=== PATIENT | female | born 1990 | race Caucasian/White ===

== ENCOUNTER 2019-12-16 17:17 | Inpatient (IN) | payer MEDICAID, OTHER ==
[~2019-12-16] VITALS: Ht 154.9 cm; Wt 94.3 kg
[~2019-12-16 17:17] MED LIST: PREN-385 PO
[2019-12-16 17:26] VITALS: BP 147/75
[2019-12-16] MEDS ORDERED: KETOROLAC 30 MG/ML VIAL IVP ONE (17:40)
[2019-12-16] MEDS ORDERED: NACL 0.9% 3,000 ML IV ONE (17:40)
[2019-12-16] MEDS ORDERED: PHENAZOPYRIDINE 100 MG TAB PO ONE (17:40)
--- NOTE | 2019-12-16 17:46 | NUR ---
Pt c/o lower abdomen radiating to lower back with hematuria, dysuria, urgency, frequency, hesitancy of urination x 4 days. Pt also reports fever, chills, nausea, vomiting for the past 4 days. Denies cough, diarrhea. PATIENT STATES PAIN OF 8/10 AT THIS TIME; VSS; left-sided CVAT ON PALPATION. PATIENT POSITIONED FOR COMFORT; HOB ELEVATED; BEDRAILS UP X1; BED DOWN. ER MD MADE AWARE OF PT STATUS.
--- NOTE | 2019-12-16 17:47 | NUR ---
xRAY IS AT BEDSIDE.
[2019-12-16 18:16] LABS: BASOPHILS # (AUTO) 0.1 K/uL (0.00-0.22); BASOPHILS % (AUTO) 0.5 % (0.0-2.0); EOSINOPHILS % (AUTO) 0.2 % (0.0-4.0); HEMATOCRIT 41.9 % (36-48); LYMPHOCYTES # (AUTO) 0.7 K/uL (2.5-16.5); LYMPHOCYTES % (AUTO) 5.9 % (20.5-51.1); MEAN CORPUSCULAR HEMOGLOBIN 30 pg (27-31); MEAN CORPUSCULAR HGB CONC 34 g/dL (33-37); MEAN CORPUSCULAR VOLUME 89.5 fL (80-94); MONOCYTES # (AUTO) 0.8 K/uL (0.8-1.0); MONOCYTES % (AUTO) 6.1 % (1.7-9.3); NEUTROPHILS % (AUTO) 87.3 % (42.2-75.2); PLATELET COUNT (AUTO) 181 K/uL (140-450); RED BLOOD CELL COUNT(AUTO) 4.68 MIL/uL (4.20-5.40); RED CELL DISTRIBUTION WIDTH 13.4 % (11.6-13.7); WHITE BLOOD COUNT (AUTO) 12.6 K/uL (4.8-10.8)
[2019-12-16 18:28] LABS: APPEARANCE,URINE HAZY (CLEAR); BILIRUBIN,URINE 1+ (NEGATIVE); BLOOD, URINE 3+ (NEGATIVE); COLOR,URINE YELLOW (YELLOW); LEUKOCYTE ESTERASE ,URINE 2+ (NEGATIVE); NITRITE, URINE POSITIVE (NEGATIVE); UGLUCOSE NEGATIVE (NEGATIVE)
[2019-12-16 18:31] LABS: PROTHROMBIN TIME 10.9 secs (10.8-13.4)
[2019-12-16 18:34] LABS: ALBUMIN 3.5 g/dL (3.4-5.0); ANION GAP 13.2 (8-16); CARBON DIOXIDE 29.4 mmol/L (21-32); CREATININE 1.2 mg/dL (0.6-1.3); POTASSIUM 3.6 mmol/L (3.5-5.1); TOTAL BILIRUBIN 2.3 mg/dL (0.0-1.0)
[2019-12-16] MEDS ORDERED: cefTRIAXone 1,000 MG VIAL ONE (18:43)
[2019-12-16] MEDS ORDERED: ACETAMINOPHEN EXTRA STRENGTH 500 MG TAB PO ONE (18:50)
[2019-12-16] MEDS ORDERED: hydrALAZINE 20 MG/ML VIAL IVP PRN (18:55)
--- NOTE | 2019-12-16 19:07 | NUR ---
RECEIVED REPORT FROM AM SHIFT NURSE FOR CONTINUITY OF CARE. TELE MONITOR IN PLACE. PATIENT RESTING IN BED. ALERT AND ORIENTED X4. PATIENT IV INTACT AND PATENT. BED IN LOW POSITION AND CALL LIGHT WITHIN REACH. PATIENT ON ROOM AIR, NO S/S OF DISTRESS NOTED. WILL CONTINUE TO MONITOR.
--- NOTE | 2019-12-16 19:15 | NUR ---
RECIVED REPORT FROM DANTE TRIANA. CONTINUATION OF CARE.
--- NOTE | 2019-12-16 19:15 | NUR ---
Pt report given to KAMILAH Chaudhary. Transfer of care at this time.
[2019-12-16 19:25] LABS: RBC,URINE 80-100 /HPF (0-5)
--- NOTE | 2019-12-16 19:25 | NUR ---
PT RESTING IN BED RESPONSIVE TO VERBAL STIMULI. PT CONTINUES ON CANAL BOAT OPERATOR. PT DENIES PAIN AT THIS TIME. IVF RUNNING CONTINOUSLY. PT IV SITE IS PATENT. NO REDNESS, SWELLING, OR PAIN NOTED AT SITE. PT ON CANAL BOAT OPERATOR. BED LOCKED AND IN LOWEST POSITION.
[2019-12-16 19:26] LABS: WBC,URINE 16-25 (MOD) /HPF (0-5)
[2019-12-16 19:45] VITALS: BP 127/71
--- NOTE | 2019-12-16 19:45 | NUR ---
Patient will be admitted to care of . Admited to TELE. Will go to room 112B. Belongings list completed. Report to BRITANY TRIANA, SHAWNA TRIANA.
--- NOTE | 2019-12-16 19:50 | NUR ---
RECEIVED PATIENT REPORT FROM ER NURSE AT 1945. PATIENT CAME IN VIA GURNEY AND IS ON TELE MONITOR. ALERT AND ORIENTED X4. IV INTACT AND PATENT. PATIENT ON ROOM AIR WITH O2 SAT AT 99%. DENIES ANY PAIN AT THIS TIME. PATIENT ORIENTED TO ROOM AND STAFF. PATIENT VERBALIZED UNDERSTANDING. BED IN LOW POSITION AND CALL LIGHT WITHIN REACH. WILL CONTINUE TO MONITOR PATIENT.
--- NOTE | 2019-12-16 22:10 | NUR ---
ROUNDS DONE AND PATIENT RESTING WITH EYES CLOSED. RESPIRATIONS EVEN AND UNLABORED.
[2019-12-16] MEDS: KETOROLAC 15 MG/ML VIAL IVP PRN (23:34)
[2019-12-17] VITALS: BP 133/70
--- NOTE | 2019-12-17 00:57 | NUR ---
PATIENT RESTING IN SIDE LYING POSITION. BED IN LOW POSITION AND CALL LIGHT WITHIN REACH.
[2019-12-17] MEDS ORDERED: FAMOTIDINE 20 MG/2 ML VIAL IV PRN (02:00)
[2019-12-17] MEDS ORDERED: ONDANSETRON 4 MG/2 ML VIAL IM/IVP PRN (02:00)
[2019-12-17] MEDS ORDERED: DOCUSATE SODIUM 100 MG GELCAP PO PRN (02:00)
[2019-12-17] MEDS ORDERED: LORazepam 2 MG/ML VIAL IM/IVP PRN (02:00)
[2019-12-17] MEDS ORDERED: HYDROcodone/APAP 7.5/325 MG 1 TAB PO PRN (02:00)
[2019-12-17] MEDS: ACETAMINOPHEN 325 MG TAB PO PRN ×3 (02:38→22:49)
[2019-12-17] MEDS: NACL 0.9% 1,000 ML IV SCH ×2 (02:41→18:00)
--- NOTE | 2019-12-17 02:42 | NUR ---
PATIENT IV FLUIDS NS AT 60ML/HR HUNG PER MD ORDER. PATIENT STATED THAT SHE HAS CHILLS, TEMP TAKEN AND RESULTS 101.2. PRN TYLENOL 650 MG BY MOUTH GIVEN FOR FEVER, ICE WATER PROVIDED AND COOLING PACKS. PATIENT WILL BE MONITORED.
[2019-12-17 02:53] LABS: FREE T4 (FREE THYROXINE) 1.18 ng/dL (0.76-1.46); MAGNESIUM 1.8 mg/dL (1.8-2.4); PHOSPHORUS 2.3 mg/dL (2.5-4.9); THYROID STIMULATING HORMONE 0.34 uIU/mL (0.34-3.74)
[2019-12-17 04:00] VITALS: BP 143/85
--- NOTE | 2019-12-17 04:07 | NUR ---
TEMP REMAINS ELEVATED 101.2. COLD FLUIDS ENCOURAGED WITH INCREASED FLUID INTAKE AND COOLING PACKS GIVEN. PATIENT REMOVED SHEET FROM COVERING HER. DENIES ANY PAIN AT THIS TIME. WILL CONTINUE TO MONITOR
[2019-12-17] MEDS: KETOROLAC 15 MG/ML VIAL IVP PRN ×3 (05:13→16:56)
--- NOTE | 2019-12-17 05:44 | NUR ---
PATIENT GIVEN PAIN MEDICATION FOR COMPLAINT OF LOWER BACK PAIN. TEMP RETAKEN AND IS NOW 98.6. WILL CONTINUE TO MONITOR PATIENT.
[2019-12-17 06:21] LABS: HEMATOCRIT 36.5 % (36-48); HEMOGLOBIN 12.3 g/dL (12.0-16.0); MEAN CORPUSCULAR HEMOGLOBIN 30 pg (27-31); MEAN CORPUSCULAR HGB CONC 34 g/dL (33-37); MEAN CORPUSCULAR VOLUME 89.6 fL (80-94); PLATELET COUNT (AUTO) 131 K/uL (140-450); RED BLOOD CELL COUNT(AUTO) 4.08 MIL/uL (4.20-5.40); RED CELL DISTRIBUTION WIDTH 12.9 % (11.6-13.7); WHITE BLOOD COUNT (AUTO) 8.2 K/uL (4.8-10.8)
[2019-12-17 06:34] LABS: ANION GAP 13.3 (8-16); CARBON DIOXIDE 24.1 mmol/L (21-32); POTASSIUM 3.4 mmol/L (3.5-5.1)
[2019-12-17 06:53] LABS: MAGNESIUM 1.8 mg/dL (1.8-2.4); PHOSPHORUS 1.4 mg/dL (2.5-4.9)
[2019-12-17 07:17] LABS: BASOPHILS % (MANUAL) 0 % (0-2); EOSINOPHILS % (MANUAL) 0 % (0-4); LYMPHOCYTES % (MANUAL) 6 % (20-46); MONOCYTES % (MANUAL) 8 % (5-12)
--- NOTE | 2019-12-17 07:32 | NUR ---
RECEIVED BEDSIDE REPORT FROM CRAP GAME BOX PERSON NURSE FOR CONTINUITY OF CARE. PT IS AWAKE AND RESTING ON BED AT THIS TIME. PT IS LOOKING AT HER PHONE. PT IS AAXO4, ABLE TO MAKE NEEDS KNOWN AND FOLLOW COMMANDS. RESPIRATION EVEN AND UNLABORED ON RA. DENIED PAIN, SOB AND DIZZINESS AT THIS TIME. NO SIGNS OF DISTRESS NOTED. IV ON LAC 20G, CLEAN AND INTACT, INFUSING AT PER MD ORDER. SKIN CLEAN AND DRY. PT IS CONTINENT AND ABLE TO AMBULATORY. SAFETY MEASURES IN PLACE. BED IN LOW POSITION AND CALL LIGHT WITHIN REACH. BED LOCKED.
--- NOTE | 2019-12-17 07:32 | NUR ---
REPORT GIVEN TO AM SHIFT NURSE FOR CONTINUITY OF CARE. PATIENT IN STABLE CONDITION AT THIS TIME
[2019-12-17 07:47] LABS: BARBITURATE, URINE NEGATIVE ng/ml (NEG <=200); BENZODIAZEPINE, URINE NEGATIVE ng/mL (NEG <=200); CANNABINOID, URINE NEGATIVE ng/mL (NEG <=50); COCAINE, URINE NEGATIVE ng/mL (NEG <=300); OPIATE, URINE NEGATIVE ng/mL (NEG <=2000); PHENCYCLIDINE SCREEN,URINE NEGATIVE ng/mL (NEG <=25)
--- NOTE | 2019-12-17 07:55 | NUR ---
PATIENT HAS BEEN SCREENED AND CATEGORIZED LOW NUTRITION RISK. PATIENT WILL BE SEEN WITHIN 7 DAYS OF ADMISSION. 12/22/19 DIAMANTE ALVAREZ MS, RDN
[2019-12-17 08:00] VITALS: BP 110/68
[2019-12-17] MEDS: LACTOBACILLUS RHAMNOSUS GG 1 EACH CAP PO SCH (09:36)
[2019-12-17] MEDS: ENOXAPARIN 40 MG/0.4 ML SYR SUBQ SCH (09:41)
--- NOTE | 2019-12-17 09:41 | NUR ---
ADMINISTERED MEDS PER MD ORDER, MEDS EDUCATION PROVIDED AND PATIENT VERBALIZED UNDERSTANDING. PT TOLERATED PO MED WELL. APPLIED TELE MONITOR. PT IS AWAKE AND RESTING ON BED AT THIS TIME. NO SIGNS OF DISTRESS NOTED. SAFETY MEASURES IN PLACE.
--- NOTE | 2019-12-17 11:40 | NUR ---
PT IS RESTING ON BED AT THIS TIME. DENIED PAIN, SOB AND DIZZINESS. NO SIGNS OF ACUTE DISTRESS NOTED. TELE MONITOR ATTACHED. SAFETY MEASURES IN PLACE.
[2019-12-17 12:00] VITALS: BP 121/70
--- NOTE | 2019-12-17 12:56 | NUR ---
ATTENDED TO CALL LIGHT AND PT COMPLAINED SEVERE BACK PAIN 02/18, MEDICATED WITH PRN TORADOL, MED EDUCATION PROVIDED AND PT VERBALIZED UNDERSTANDING. PT REQUESTED FOR MORE ICE WATER, PROVIDED. PT IS RESTING ON BED AT THIS TIME. NO SIGNS OF DISTRESS NOTED. TELE MONITOR ATTACHED. SAFETY MEASURES IN PLACE.
--- NOTE | 2019-12-17 13:27 | NUR ---
PT IS RESTING ON BED AT THIS TIME, STATED THAT PAIN REDUCED TO 1/10 AND IT'S WITHIN HER TOLERABLE LIMIT. NO SIGNS OF ACUTE DISTRESS NOTED. TELE MONITOR ATTACHED. SAFETY MEASURES IN PLACE.
--- NOTE | 2019-12-17 14:35 | NUR ---
DR CISNEROS MADE AWARE THAT POTASSIUM IS 3.4L AND PHOSPHORUS 1.4L.
--- NOTE | 2019-12-17 15:17 | NUR ---
PT IS AWAKE AND RESTING ON BED. STATED PAIN REDUCED, DENIED SOB AND DIZZINESS. NO SIGNS OF DISTRESS NOTED. TELE MONITOR ATTACHED. SAFETY MEASURES IN PLACE.
[2019-12-17 16:00] VITALS: BP 135/71
[2019-12-17] MEDS ORDERED: SODIUM PHOS / POTASSIUM PHOS 1 PKT PDR PO SCH (16:00)
[2019-12-17] MEDS ORDERED: POTASSIUM CHLORIDE 10 MEQ TABER PO SCH (16:00)
--- NOTE | 2019-12-17 16:01 | NUR ---
NEUROPSYCHOLOGY SERVICE DIRECTOR REPORTED PT HAS HIGH TEMP, ATTENDED AND ASSESSED TEMP, RECEIVED 101.4. MEDICATED WITH TYLENOL AND APPLIED ICE PACK ON FOREHEAD, WILL REASSESS TEMP. ADMINISTERED 40 MEQ K-DUR AND PHOSPHORUS POWDER FOR LOW AM LAB, MEDS EDUCATION PROVIDED AND PT VERBALIZED UNDERSTANDING. PT DENIED PAIN, SOB AND DIZZINESS. NO SIGNS OF ACUTE DISTRESS NOTED. TELE MONITOR ATTACHED. SAFETY MEASURES IN PLACE.
--- NOTE | 2019-12-17 16:53 | NUR ---
REASSESSED TEMP AND RECEIVED 100.9. APPLIED ICE PACK ON FOREHEAD. DR CISNEROS MADE AWARE AND SAID ADMINISTER TORADOL. WILL ADMINISTER.
--- NOTE | 2019-12-17 16:58 | NUR ---
ADMINISTERED TORADOL VIA IVP PER MD ORDER FOR TEMP 100.9, MED ED PROVIDED AND PT VERBALIZED UNDERSTANDING. APPLIED ICE PACK ON FOREHEAD, WILL RECHECK TEMP SHORTLY. PT AWAKE AND RESTING ON BED. NO SIGNS OF DISTRESS NOTED. TELE MONITOR ATTACHED. SAFETY MEASURES IN PLACE.
--- NOTE | 2019-12-17 17:27 | NUR ---
REASSESSED TEMP AND RECEIVED 99. PT IS AWAKE AND LOOKING AT HER PHONE. NO SIGNS OF ACUTE DISTRESS NOTED. TELE MONITOR ATTACHED. SAFETY MEASURES IN PLACE.
--- NOTE | 2019-12-17 18:00 | NUR ---
ADMINISTERED ROCEPHIN PER MD ORDER, MED EDUCATION PROVIDED AND PT VERBALIZED UNDERSTANDING. PT IS EATING DINNER AT THIS TIME. NO SIGNS OF DISTRESS NOTED. TELE MONITOR ATTACHED. SAFETY MEASURES IN PLACE.
--- NOTE | 2019-12-17 19:06 | NUR ---
RECEIVED REPORT FORM MOSHE TRIANA DAYSHIFT NURSWE AT BEDSIDE FOR CONTINUITY OF CARE, PT IN STABLE CONDITION,
--- NOTE | 2019-12-17 19:06 | NUR ---
ENDORSED PT AT BEDSIDE TO LOTUS NOTES ADMINISTRATOR NURSE FOR CONTINUITY OF CARE. PT IS AWAKE AND RESTING ON BED. TELE MONITOR ATTACHED. PT IS IN STABLE CONDITION.
[2019-12-17 20:00] VITALS: BP 117/75
--- NOTE | 2019-12-17 20:00 | NUR ---
PT IN BED AOX4 SKIN INTACT, SHE HAS LEFT AC 20 GUAGE RUNNING AT 60MLS/HR OF NORMAL SALINE IV SIT3 INTACT BUT LEAKING. WILL CHANGE IV SITE LATER, PT DENIES PAIN AND ALL UNIVERSAL PRECAUTIONS IN PLACE.
--- NOTE | 2019-12-17 21:00 | NUR ---
PT IN BED V/S FOLLOWS: T 98.2 P 105 R 20 B/P 117/75 02 97% ON ROOM AIR. ALL STATED REQUESTED ATTENDED BY STAFF AND ALL UNIVERSAL PRECAUTIONS IN PLACE.
--- NOTE | 2019-12-17 21:30 | NUR ---
PT C/O OF CHILLS, FLUIDS ENCOURAGED AND ICE PACKS PROVIDED FOR COOLING MEASURES. ER STAFF COME UP AND PROVIDED A 20G ON LAC, RUNNING RUNNING NORMAL SALINE AT 60MLS/HR. ALL UNIVERSAL PRECAUTIONS IN PLACE.
--- NOTE | 2019-12-17 23:00 | NUR ---
PT WAS GIVEN TYLENOL FOR TEMP OF 101.6. COOLING MEASURES ALSO PROVIDED.
[2019-12-18] VITALS: BP 128/82
--- NOTE | 2019-12-18 00:30 | NUR ---
PT IN BED V/S FOLLOWS: T 100.8 P 111 R 15 B/P 128/82 02 97% COOLING MEASURES AT BEDSIDE. FLUIDS ENCOURAGED. ALL UNIVERSAL FALLS PRECAUTIONS IN PLACE.
[2019-12-18 04:00] VITALS: BP 142/78
--- NOTE | 2019-12-18 04:30 | NUR ---
PT IN BED AOX4 NEW IV SITE ON RIGHT AC 20 GUAGE INTACT AND ASYMPTOMATIC RUNNING NORMAL SALINE AT 60MLS/HR. V/S FOLLOWS: T 100.8 P 111 R 15 B/P 128/82 02 97%. PT C/O OF CHILLS COOLING MEASURES AT BEDSIDE.
[2019-12-18 06:16] LABS: BASOPHILS # (AUTO) 0.1 K/uL (0.00-0.22); BASOPHILS % (AUTO) 1.1 % (0.0-2.0); EOSINOPHILS % (AUTO) 0.8 % (0.0-4.0); HEMATOCRIT 37.8 % (36-48); HEMOGLOBIN 12.8 g/dL (12.0-16.0); LYMPHOCYTES # (AUTO) 0.8 K/uL (2.5-16.5); MEAN CORPUSCULAR HEMOGLOBIN 30 pg (27-31); MEAN CORPUSCULAR HGB CONC 34 g/dL (33-37); MEAN CORPUSCULAR VOLUME 89.8 fL (80-94); MONOCYTES # (AUTO) 0.3 K/uL (0.8-1.0); MONOCYTES % (AUTO) 6.8 % (1.7-9.3); NEUTROPHILS # (AUTO) 3.7 K/uL (1.8-7.7); NEUTROPHILS % (AUTO) 75.3 % (42.2-75.2); PLATELET COUNT (AUTO) 139 K/uL (140-450); RED BLOOD CELL COUNT(AUTO) 4.21 MIL/uL (4.20-5.40); RED CELL DISTRIBUTION WIDTH 12.7 % (11.6-13.7); WHITE BLOOD COUNT (AUTO) 4.9 K/uL (4.8-10.8)
[2019-12-18 06:39] LABS: PHOSPHORUS 3.1 mg/dL (2.5-4.9)
[2019-12-18 06:47] LABS: CARBON DIOXIDE 27.8 mmol/L (21-32); CREATININE 0.9 mg/dL (0.6-1.3); POTASSIUM 3.8 mmol/L (3.5-5.1)
--- NOTE | 2019-12-18 07:25 | NUR ---
RECEIVED PATIENT FROM NIGHT NURSE. PATIENT IS AWAKE AND ALERT. RESP EVEN AND UNLABORED AT ROOM AIR. PATIENT DENIES OF PAIN OR DISCOMFORT AT THIS TIME. RAC IV NOTED CLEAN WITH NS @60ML/HR. PLAN OF CARE DISCUSSED, PATIENT VERBALIZED UNDERSTANDING. WILL CONTINUE WITH CARE.
[2019-12-18 08:00] VITALS: BP 149/90
[2019-12-18] MEDS: LACTOBACILLUS RHAMNOSUS GG 1 EACH CAP PO SCH (08:25)
[2019-12-18] MEDS: ENOXAPARIN 40 MG/0.4 ML SYR SUBQ SCH (08:31)
[2019-12-18] MEDS: NACL 0.9% 1,000 ML IV SCH ×3 (08:32→21:47)
--- NOTE | 2019-12-18 08:33 | NUR ---
MORNING ROUTINE MEDICATIONS GIVEN. TEMP 99.4 COOLING MEASURE PROVIDED. PLATELET 139, DR LINO MADE AWARE AND OK TO GIVE LOVENOX. PATIENT TOLERATED WELL. TEACHINGS PROVIDED R/T DX. ENCOURAGED FLUID AND NOTIFY STAFF NEEDED FOR CONCERNS. CALL LIGHT WITHIN REACH. WILL CONTINUE TO MONITOR.
--- NOTE | 2019-12-18 11:20 | NUR ---
PATIENT SITTING COMFORTABLY IN BED. PATIENT DENIES OF PAIN OR DISCOMFORT AT THIS TIME. FLUID ENCOURAGED AND CALL STAFF NEEDED. CALL LIGHT WITHIN REACH. WILL CONTINUE WITH CARE.
--- NOTE | 2019-12-18 11:47 | NUR ---
DC PLANN[age] YRS OLD FEMALE PATIENT WAS ADMITTED FROM HOME WITH A DX OF PYELONEPHRITIS. PT HAS NO MEDICAL HISTORY. CXR NO ACUTE CARDIOPULMONARY DISEASE . RENAL ULTRASOUND NORMAL . BLOOD AND URINE CULTURE PENDING STARTED ON IVF, IV ABX WITH ROCEPHIN AND PAIN CONTROL WITH TORADOL. DC PLAN TO GO HOME WHEN STABLE. CM TO FOLLOW Addendum: 12/19/19 at 1100 by Yelena Ashley CM DC PLANNING: PT HAS A DC ORDER TO GO HOME WITH PRESCRIPTION ,NO NEEDS. F/U WITH CHOICE OF PCP. STABLE FOR DISCHARGE.
[2019-12-18 12:00] VITALS: BP 149/83
--- NOTE | 2019-12-18 12:04 | NUR ---
FORENSIC SERGEANT NOTE: Basic Screen: Yes High Risk DC Screen Hansen: SURJIT Olivera Relationship: Pre-Admission Living Arrangements: Lives with Other Prior ADL Independent Current Home Health Name/Tel: N/A Current DME/02 Name/Tel: N/A Current Hospice Name/Tel: N/A Current Dialysis Name/Tel: N/A Healthcare Decision Maker: Patient Advance Directive No Physician Orders for Life Sustaining Treatment Form No Patient/Family Have Educational Needs No Discipline: Case Mgt/Social Svcs Tentative Discharge Plan/Destination: No Needs Identified Will require assistance post discharge: No Referred to Meat Supervisor: No Tentative Discharge Plan Summary: PATIENT IS A 29-YEAR-OLD FEMALE ADMITTED FOR PYELONEPHRITIS. PATIENT HAS NO PERTINANT PMHX. PATIENT WAS ADMITTED FROM HOME WHERE SHE LIVES WITH FAMILY. PATIENT STATED THAT SHE IS INDEPENDENT WITH ALL ADLS AND REPORTS NO HISTORY OF SUBSTANCE ABUSE OR MENTAL HEALTH. PATIENT STATED THAT ALL OF HER NEEDS ARE BEING MET. TENTATIVE DISCHARGE PLAN IS FOR PATIENT TO RETURN HOME. NO FURTHER NEEDS IDENTIFIED. Signature: LEVY MENA Date: Dec 18, 2019 Time: 12:03
--- NOTE | 2019-12-18 14:35 | NUR ---
PATIENT IS SITTING COMFORTABLY IN BED. DENIES OF PAIN AT THIS TIME. FLUIDS GIVEN. CALL LIGHT WITHIN REACH. WILL CONTINUE TO MONITOR.
[2019-12-18 16:00] VITALS: BP 136/89
--- NOTE | 2019-12-18 17:16 | NUR ---
ROCEPHIN ADMINISTERED IVPB. NO NOTED ASE. ENCOURAGED FLUIDS. DENIES PAIN AT THIS TIME. CALL LIGHT WITHIN REACH. WILL CONTINUE TO MONITOR.
--- NOTE | 2019-12-18 19:20 | NUR ---
ENDORSED PATIENT TO NIGHT NURSE. PATIENT IN STABLE CONDITION.
--- NOTE | 2019-12-18 19:21 | NUR ---
RECEIVED BEDSIDE REPORT FROM AM SHIFT NURSE. PATIENT IS LYING IN BED AWAKE AND ALERT. NO SOB OR DISTRESS NOTED, ON ROOM AIR. RESPIRATIONS EVEN AND UNLABORED. IV ACCESS ON LEFT AC 20 GAUGE, PATENT, INTACT AND INFUSING WELL. PATIENT IS AMBULATORY. INITIAL ASSESSMENT DONE. SKIN IS INTACT. BED IN LOW, BED LOCKED. SAFETY MEASURES IN PLACE. CALL LIGHT WITHIN PATIENT REACH. WILL CONTINUE TO MONITOR PATIENT.
[2019-12-18 20:15] VITALS: BP 138/86
--- NOTE | 2019-12-18 21:50 | NUR ---
ROUNDS DONE. PATIENT RESTING WITH EYES CLOSED. NO SOB OR DISTRESS NOTED. CALL LIGHT WITHIN PATIENT REACH. WILL CONTINUE TO MONITOR PATIENT.
[2019-12-19 00:15] VITALS: BP 137/55
--- NOTE | 2019-12-19 00:15 | NUR ---
VITALS DONE. NO SOB OR DISTRESS NOTED. CALL LIGHT WITHIN PATIENT REACH. WILL CONTINUE TO MONITOR PATIENT.
--- NOTE | 2019-12-19 02:12 | NUR ---
ROUNDS DONE. VISIBLE CHEST RISE AND FALL NOTED. NO SOB OR DISTRESS NOTED. CALL LIGHT WITHIN PATIENT REACH. WILL CONTINUE TO MONITOR PATIENT.
[2019-12-19 04:10] VITALS: BP 141/89
--- NOTE | 2019-12-19 04:10 | NUR ---
VITALS DONE. NO SOB OR DISTRESS NOTED. PATIENT AWAKE AND ON PHONE. CALL LIGHT WITHIN PATIENT REACH. WILL CONTINUE TO MONITOR PATIENT.
--- NOTE | 2019-12-19 06:52 | NUR ---
PATIENT IN STABLE CONDITION. NO DISTRESS NOTED. VISIBLE CHEST RISE AND FALL NOTED. CALL LIGHT WITHIN PATIENT REACH. WILL ENDORSE TO AM SHIFT NURSE FOR CONTINUITY OF CARE.
[2019-12-19 07:03] LABS: ANION GAP 11.2 (8-16); CARBON DIOXIDE 27.6 mmol/L (21-32); CREATININE 0.9 mg/dL (0.6-1.3); POTASSIUM 3.8 mmol/L (3.5-5.1)
--- NOTE | 2019-12-19 07:20 | NUR ---
RECEIVED REPORT FROM NIGHT NURSE FOR CONTINUITY OF CARE, PT IS AAOX4, PT IS STABLE, NO SIGNS OF DISTRESS NOTED, RESPIRATIONS ARE EVEN AND UNLABORED ON ROOM AIR, PT HAS LEFT AC 20G INFUSING NORMAL SALINE AT 120ML/H, PT AMBULATORY, SKIN INTACT, INTRODUCE SELF, UPDATED WHITEBOARD, ALL NEEDS MET, WILL CONTINUE TO MONITOR, CALL LIGHT WITHIN REACH.
[2019-12-19 07:24] LABS: BASOPHILS % (AUTO) 0.8 % (0.0-2.0); EOSINOPHILS # (AUTO) 0.1 K/uL (0-0.4); EOSINOPHILS % (AUTO) 1.2 % (0.0-4.0); HEMATOCRIT 38.4 % (36-48); HEMOGLOBIN 12.8 g/dL (12.0-16.0); LYMPHOCYTES # (AUTO) 1.2 K/uL (2.5-16.5); LYMPHOCYTES % (AUTO) 24.8 % (20.5-51.1); MEAN CORPUSCULAR HEMOGLOBIN 30 pg (27-31); MEAN CORPUSCULAR HGB CONC 33 g/dL (33-37); MEAN CORPUSCULAR VOLUME 89.7 fL (80-94); MONOCYTES # (AUTO) 0.6 K/uL (0.8-1.0); NEUTROPHILS # (AUTO) 2.9 K/uL (1.8-7.7); NEUTROPHILS % (AUTO) 61.2 % (42.2-75.2); PLATELET COUNT (AUTO) 162 K/uL (140-450); RED BLOOD CELL COUNT(AUTO) 4.28 MIL/uL (4.20-5.40); WHITE BLOOD COUNT (AUTO) 4.7 K/uL (4.8-10.8)
[2019-12-19 08:00] VITALS: BP 137/88
[2019-12-19] MEDS: ENOXAPARIN 40 MG/0.4 ML SYR SUBQ SCH (08:26)
[2019-12-19] MEDS: LACTOBACILLUS RHAMNOSUS GG 1 EACH CAP PO SCH (08:28)
[2019-12-19] MEDS: NACL 0.9% 1,000 ML IV SCH (08:29)
--- NOTE | 2019-12-19 08:33 | NUR ---
ADMINISTERED SCHEDULED MEDICATION, MEDICATION EDUCATION GIVEN, PT VERBALIZED UNDERSTANDING, PT TOLERATED WELL, PT IS STABLE, NO SIGNS OF DISTRESS NOTED, RESPIRATIONS ARE EVEN AND UNLABORED ON ROOM AIR, CALL LIGHT WITHIN REACH.
[2019-12-19] MEDS ORDERED: CEPH250C16 PO (10:09)
--- NOTE | 2019-12-19 11:05 | NUR ---
PT RESTING IN BED, PT IS STABLE, NO SIGNS OF DISTRESS NOTED, RESPIRATIONS ARE EVEN AND UNLABORED ON ROOM AIR, CALL LIGHT WITHIN REACH.
--- NOTE | 2019-12-19 11:30 | NUR ---
PT DISCHARGED HOME, DISCHARGED INSTRUCTIONS GIVEN, PT VERBALIZED UNDERSTANDING, PT IV REMOVED AND INTACT, PT STABLE, WHEELED OUT TO THE CAR, FLU AND PNA N/A
[2019-12-19] MEDS ORDERED: LEVO750T2 PO (16:30)
== END 2019-12-19 11:30 | disposition home or self-care (01) | DRG 720 ==
LOC: MED 17:17 → MTU 19:07
PROVIDERS: ADMIT General Practice; ATTEND General Practice
DX: A41.9 Sepsis, unspecified organism (principal); E83.39 Other disorders of phosphorus metabolism; E66.9 Obesity, unspecified; E87.6 Hypokalemia; N12 Tubulo-interstitial nephritis, not specified as acute or chronic; R73.9 Hyperglycemia, unspecified; Z68.39 Body mass index [BMI] 39.0-39.9, adult; Z71.3 Dietary counseling and surveillance; Z98.51 Tubal ligation status
CPT/HCPCS: 36415; 71045; 76770; 80048; 80053; 80305; 81001; 82150; 82550; 83036; 83605; 83615; 83690; 83735; 83880; 84100; 84439; 84443; 84484; 85025; 85610; 87040; 87081; 87086; 87186; 96365; 96375; 99291; J0696; J1650; J1885; J2405; J7030; J7060; Q0092